=== PATIENT | female | born 1975 | race Caucasian/White ===

== ENCOUNTER 2019-09-11 11:37 | Observation (INO) ==
[2019-09-11] MEDS ORDERED: Naloxone 0.4 MG/ML INJ IVP PRN ×2 (13:54→20:23)
[2019-09-11] MEDS ORDERED: Ondansetron 4 MG/2 ML VIAL IVP PRN ×2 (13:54→20:23)
[2019-09-11] MEDS ORDERED: *HR* OxyCODONE/APAP 7.5/325 TABLET PO PRN (14:20)
[2019-09-11] MEDS ORDERED: Td (TENIVAC) Vaccine 0.5 ML VIAL IM ONE (14:33)
[2019-09-11] MEDS ORDERED: *HR* Heparin 5,000 UNIT/ML VIAL SQ SCH (18:00)
[2019-09-11] MEDS ORDERED: Ampicillin/Sulbactam 3,000 MG in 0.9 % Sodium Chloride Mini Bag 100 ML IVPB SCH ×2 (18:00→19:00)
[2019-09-11] MEDS ORDERED: Lidocaine/EPI 1:200k 1% PF 10 ML VIAL ONE (18:28)
[2019-09-11] MEDS ORDERED: Lidocaine 1% 0 ML ONE (18:28)
[2019-09-11] MEDS ORDERED: Bupivacaine/EPI 1:200k 0.25%PF 10 ML VIAL INFILT ONE (18:28)
[2019-09-11] MEDS ORDERED: Lidocaine -MPF 2% 2 ML VIAL ONE (18:33)
[2019-09-11] MEDS ORDERED: Dexamethasone 4 MG/ML VIAL ONE (18:33)
[2019-09-11] MEDS ORDERED: *HR* FentaNYL (PF) 100 MCG/2 ML VIAL ONE (18:33)
[2019-09-11] MEDS ORDERED: Ondansetron 4 MG/2 ML VIAL ONE (18:33)
[2019-09-11] MEDS ORDERED: *HR* Propofol 200 MG/20 ML VIAL IVP ONE (18:33)
[2019-09-11] MEDS ORDERED: *HR* Midazolam HCl 2 MG/2 ML VIAL ONE (18:33)
[2019-09-11] MEDS ORDERED: *HR* Meperidine 25 MG/ML SYRINGE IVP PRN ×2 (18:47→20:23)
[2019-09-11] MEDS ORDERED: Ondansetron 4 MG/2 ML VIAL IVP ONE ×2 (18:47→20:23)
[2019-09-11] MEDS ORDERED: Dexamethasone 4 MG/ML VIAL IVP ONE ×2 (18:47→20:23)
[2019-09-11] MEDS ORDERED: *HR* OxyCODONE Immed Rel 5 MG TABLET PO PRN (18:47)
[2019-09-11] MEDS ORDERED: Ketorolac 30 MG/ML VIAL ONE (19:20)
[2019-09-11] MEDS: *HR* HYDROmorphone PF 0.5 MG/0.5 ML SYRINGE IVP PRN ×2 (19:40→19:55)
[2019-09-11] MEDS ORDERED: *HR* HYDROmorphone PF 0.5 MG/0.5 ML SYRINGE IVP PRN (20:23)
[2019-09-12] MEDS: Ampicillin/Sulbactam 3,000 MG in 0.9 % Sodium Chloride Mini Bag 100 ML IVPB SCH ×2 (00:10→07:51)
[2019-09-12] MEDS: *HR* OxyCODONE/APAP 7.5/325 TABLET PO PRN ×2 (00:15→07:51)
[2019-09-12] MEDS: *HR* Heparin 5,000 UNIT/ML VIAL SQ SCH ×2 (05:18→07:52)
[2019-09-12 06:38] LABS: Hemoglobin 8.5 g/dL (11.5-15.4)
[2019-09-12 06:40] LABS: Basophils % 0.2 %; Hematocrit 31.5 % (35.3-44.9); Immature Granulocytes % 0.5 % (0-4); Immature Platelets 7.7 % (1.1-6.1); Lymphocytes # 0.9 K/mcL (0.6-4.6); Mean Corpuscular Hemoglobin 20.7 pg (28.0-33.3); Mean Corpuscular Volume 76.8 fL (83.0-100.0); Monocytes # 0.3 K/mcL (0.0-1.3); Monocytes % 4.8 %; Platelet Count 237 K/mcL (140-400); Red Cell Distribution Width 24.4 % (11.5-14.5); Segmented Neutrophils % 80.5 %; White Blood Count 6.5 K/mcL (4.3-11.1)
[2019-09-12 06:44] LABS: Anisocytosis 2+ (Not Present); Hypochromasia Present (Not Present); Neutrophils # 5.2 K/mcL (1.6-8.9); Platelet Estimate Normal (Normal)
[2019-09-12 07:00] LABS: BUN/Creatinine Ratio 25 (6-26); Blood Urea Nitrogen 21 mg/dL (6-20); Calcium 9.4 mg/dL (8.6-10.3); Carbon Dioxide 27 mEq/L (23-29); Chloride 107 mEq/L (98-107); Glucose 191 mg/dL (70-105); Osmolality,Calculated 296 (280-300); Potassium 4.8 mEq/L (3.5-5.1); Sodium 139 mEq/L (136-145); eGFR For African Americans > 60 (> 60); eGFR For Non-African Americans > 60 (> 60)
[2019-09-12] MEDS ORDERED: Magnesium Oxide 400 MG TABLET PO SCH (09:00)
[2019-09-12] MEDS ORDERED: Pregabalin 75 MG CAPSULE PO SCH (09:00)
[2019-09-12] MEDS ORDERED: tiZANidine 4 MG TABLET PO SCH (09:00)
[2019-09-12] MEDS ORDERED: Cholecalciferol (D-3) 1,000 UNIT (25MCG) TABLET PO SCH (09:00)
[2019-09-12 10:47] VITALS: BP 140/87
[2019-09-12] MEDS ORDERED: Ibuprofen 400 MG TABLET PO ONE (10:48)
[2019-09-12] MEDS ORDERED: Fluconazole 100 MG TABLET PO SCH (11:15)
[2019-09-12] MEDS ORDERED: rOPINIRole 0.25 MG TABLET PO SCH (21:00)
== END 2019-09-12 13:02 | disposition home or self-care (01) ==
LOC: 3ANU → SUATTDRO 12:48
PROVIDERS: ADMIT Internal Medicine; ATTEND Internal Medicine